=== PATIENT | male | born 1970 | race Caucasian/White ===

== ENCOUNTER 2022-01-05 09:54 | Emergency (ER) | payer OTHER ==
[~2022-01-05] VITALS: Ht 190.5 cm; Wt 149.1 kg
[2022-01-05 11:10] VITALS: BP 172/90
[2022-01-05 11:19] LABS: BASO % 0.5 % (0.0-1.0); LYMPH # 1.6 10^3/uL (1.5-5.0); LYMPH % 28.5 % (24.0-44.0); MEAN CORPUSCULAR HEMOGLOBIN 25.2 pg (27.0-33.0); MEAN CORPUSCULAR HGB CONC 31.8 g/dl (32.0-36.5); MEAN CORPUSCULAR VOLUME 79.3 fl (80.0-96.0); MONO # 0.8 10^3/uL (0.0-0.8); MONO % 14.5 % (2.0-8.0); NEUTROPHILS # 3.2 10^3/uL (1.5-8.5); PLATELET COUNT, AUTOMATED 198 10^3/uL (150-450); RED BLOOD COUNT 5.55 10^6/uL (4.30-6.10); WHITE BLOOD COUNT 5.7 10^3/uL (4.0-10.0)
[2022-01-05 11:48] LABS: APPEARANCE, URINE CLEAR (CLEAR); BACTERIA, URINE AUTO NEGATIVE (NEGATIVE); BILIRUBIN, URINE AUTO NEGATIVE (NEGATIVE); BLOOD, URINE BLOOD NEGATIVE (NEGATIVE); COLOR, URINE YELLOW (YELLOW); GLUCOSE, URINE (UA) AUTO NEGATIVE (NEGATIVE); KETONE, URINE AUTO NEGATIVE (NEGATIVE); LEUKOCYTE ESTERASE, URINE AUTO NEGATIVE (NEGATIVE); MUCUS, URINE SMALL (NEGATIVE); NITRITE, URINE AUTO NEGATIVE (NEGATIVE); PROTEIN, URINE AUTO NEGATIVE (NEGATIVE); RBC, URINE AUTO 2 /HPF (0-3); SPECIFIC GRAVITY URINE AUTO 1.008 (1.002-1.035); SQUAMOUS EPITHELIAL CELL UR AU 0 /HPF (0-6); UROBILINOGEN, URINE AUTO 0.2 mg/dL (0.0-2.0); WBC, URINE AUTO 0 /HPF (0-3)
[2022-01-05 12:00] LABS: ALBUMIN 3.8 GM/DL (3.2-5.2); ALT/SGPT 33 U/L (12-78); BILIRUBIN,TOTAL 0.4 MG/DL (0.2-1.0); BLOOD UREA NITROGEN 10 MG/DL (7-18); CALCIUM LEVEL 8.6 MG/DL (8.5-10.1); CARBON DIOXIDE LEVEL 25 MEQ/L (21-32); CHLORIDE LEVEL 110 MEQ/L (98-107); CREATININE FOR GFR 1.12 MG/DL (0.70-1.30); GLOMERULAR FILTRATION RATE > 60.0 (>56); GLUCOSE, FASTING 106 MG/DL (70-100); POTASSIUM SERUM 3.8 MEQ/L (3.5-5.1); SODIUM LEVEL 140 MEQ/L (136-145); TOTAL PROTEIN 7.6 GM/DL (6.4-8.2)
[2022-01-05] MEDS ORDERED: HYDR-3490 PO (12:56)
[2022-01-05] MEDS ORDERED: LISI10TA22 PO (12:56)
[2022-01-05 13:27] VITALS: BP 146/86
== END 2022-01-05 13:28 | disposition home or self-care (01) ==
LOC: M ED 09:54
DX: I10 Essential (primary) hypertension (principal)

== ENCOUNTER → 2022-06-06 | Outpatient (CLI) | payer OTHER ==
[~2022-06-06] MED LIST: HYDR-3490 PO; LISI10TA22 PO
[2022-06-06 18:02] LABS: ALBUMIN 3.9 GM/DL (3.2-5.2); BLOOD UREA NITROGEN 12 MG/DL (7-18); CALCIUM LEVEL 8.7 MG/DL (8.5-10.1); CARBON DIOXIDE LEVEL 24 MEQ/L (21-32); CHLORIDE LEVEL 105 MEQ/L (98-107); CREATININE FOR GFR 1.12 MG/DL (0.70-1.30); FREE T4 1.09 NG/DL (0.76-1.46); GLOMERULAR FILTRATION RATE > 60.0 (>56); GLUCOSE, FASTING 87 MG/DL (70-100); MAGNESIUM LEVEL 2.3 MG/DL (1.8-2.4); PHOSPHORUS LEVEL 2.9 MG/DL (2.5-4.9); POTASSIUM SERUM 3.6 MEQ/L (3.5-5.1); SODIUM LEVEL 137 MEQ/L (136-145)
[2022-06-06 19:14] LABS: CREATININE, URINE 85.6 MG/DL; CREATININE,RANDOM URINE 85.6 MG/DL; MALB URINE SIEMENS 7.8 MG/L; MAU/CREAT RATIO 9.1 MCG/MG (0.0-30.0)
== END ==
LOC: M LAB 15:13
PROVIDERS: ATTEND Internal Medicine Cardiovascular Disease
DX: I10 Essential (primary) hypertension (principal)

== ENCOUNTER → 2022-06-18 | Outpatient (REF) | payer OTHER | LOC: M LAB REF 08:10 | PROVIDERS: ATTEND Internal Medicine Cardiovascular Disease | DX: I10 Essential (primary) hypertension (principal) ==

== ENCOUNTER → 2022-06-19 | Outpatient (CLI) | payer OTHER | LOC: M RAD 07:27 | PROVIDERS: ATTEND Internal Medicine Cardiovascular Disease | DX: I10 Essential (primary) hypertension (principal); R14.0 Abdominal distension (gaseous) ==

== ENCOUNTER 2023-03-20 07:24 | Day surgery (SDC) | payer OTHER ==
[~2023-03-20] VITALS: Ht 190.5 cm; Wt 134.8 kg
[~2023-03-20 07:24] MED LIST changes: +CARV3.12 PO; +CelecoXIB 400 MG CAP PO ONE; +HYDR12.55 PO; +LISI30TA4 PO
[2023-03-20] MEDS ORDERED: LR 1,000 ML IV SCH (07:30)
[2023-03-20] MEDS ORDERED: LIDOCAINE 2% 100MG/5ML SDV (FOR ANES.) As Ordered ONE (07:58)
[2023-03-20] MEDS ORDERED: ONDANSETRON 4MG 2ML VIAL As Ordered ONE (07:58)
[2023-03-20] MEDS ORDERED: propofoL 200 MG/20 ML VIAL As Ordered ONE (07:58)
[2023-03-20] MEDS ORDERED: fentaNYL 100 MCG/2 ML INJECTION As Ordered ONE (08:04)
[2023-03-20] MEDS ORDERED: MIDAZOLAM INJ 2MG/2ML VIAL As Ordered ONE (08:04)
[2023-03-20] MEDS ORDERED: BOTOX THERAPEUTIC 100 UNIT VIAL As Ordered ONE ×2 (08:10→08:53)
[2023-03-20] MEDS ORDERED: ACETAMINOPHEN 1000MG 100ML IV BAG As Ordered ONE (09:14)
[2023-03-20 10:00] VITALS: BP 131/83; TEMP 97.6; O2SAT 98
== END 2023-03-20 10:15 | disposition home or self-care (01) ==
LOC: M SDC 07:24
PROVIDERS: ATTEND Surgery
DX: K43.9 Ventral hernia without obstruction or gangrene (principal); L98.7 Excessive and redundant skin and subcutaneous tissue; I10 Essential (primary) hypertension; E66.01 Morbid (severe) obesity due to excess calories; Z87.891 Personal history of nicotine dependence; Z79.899 Other long term (current) drug therapy
CPT/HCPCS: 64646; J0131; J0585; J0665; J1100; J2250; J2405; J3010

== ENCOUNTER 2023-04-27 06:13 | Inpatient (IN) | payer OTHER ==
[~2023-04-27] VITALS: Ht 190.5 cm; Wt 133.4 kg
[~2023-04-27 06:13] MED LIST changes: +HEPARIN SOD (PORCINE) 5000UNITS/ML 1ML VIAL/SYRINGE SQ ONE; +POTA-151 PO; +VITMTA PO; +ceFAZolin SOD 2 GM in IV 1 EA IV ONE
[2023-04-27] MEDS ORDERED: GENTAMICIN SULF 80MG/2ML VIAL As Ordered ONE (07:13)
[2023-04-27] MEDS ORDERED: propofoL 200 MG/20 ML VIAL As Ordered ONE (07:15)
[2023-04-27] MEDS ORDERED: ROCURONIUM BROMIDE 50MG/5ML VIAL As Ordered ONE ×3 (07:15→09:58)
[2023-04-27] MEDS ORDERED: LIDOCAINE 2% 100MG/5ML SDV (FOR ANES.) As Ordered ONE (07:15)
[2023-04-27] MEDS ORDERED: MIDAZOLAM INJ 2MG/2ML VIAL As Ordered ONE (07:16)
[2023-04-27] MEDS ORDERED: fentaNYL 250 MCG/5 ML INJECTION As Ordered ONE (07:16)
[2023-04-27] MEDS ORDERED: SUGAMMADEX SODIUM 500 MG/5 ML VIAL (BRIDION) As Ordered ONE (08:32)
[2023-04-27] MEDS ORDERED: METOCLOPRAMIDE INJ 10MG/2ML VIAL As Ordered ONE (08:32)
[2023-04-27] MEDS ORDERED: ONDANSETRON 4MG 2ML VIAL As Ordered ONE (08:32)
[2023-04-27] MEDS ORDERED: ACETAMINOPHEN 1000MG 100ML IV BAG As Ordered ONE (08:32)
[2023-04-27] MEDS ORDERED: KETOROLAC 60MG 2ML VIAL As Ordered ONE (08:32)
[2023-04-27] MEDS ORDERED: ePHEDrine SULFATE 25 MG/5 ML(5MG/ML) SYRINGE As Ordered ONE (08:37)
[2023-04-27] MEDS ORDERED: ceFAZolin 2 GM/D5W 50 ML IV BAG As Ordered ONE (11:07)
[2023-04-27] MEDS ORDERED: HYDROmorphone HCL 2MG/ML 1ML VIAL As Ordered ONE (11:07)
[2023-04-27] MEDS ORDERED: DESFLURANE 240 ML INHALANT As Ordered ONE (11:15)
[2023-04-27] MEDS ORDERED: MORPHINE 4 MG/ML 1ML VIAL IV PRN (12:00)
[2023-04-27] MEDS ORDERED: ONDANSETRON 4MG 2ML VIAL IV PRN ×2 (12:00→12:25)
[2023-04-27] MEDS ORDERED: PROMETHAZINE 25MG/ML 1ML VIAL IV PRN (12:00)
[2023-04-27] MEDS ORDERED: PERCOCET 5MG/325MG TAB PO PRN (12:00)
[2023-04-27] MEDS ORDERED: LR 1,000 ML IV SCH (12:25)
[2023-04-27] MEDS ORDERED: fentaNYL 100 MCG/2 ML INJECTION IV PRN (12:25)
[2023-04-27] MEDS ORDERED: oxyCODONE 5MG TAB PO PRN (12:40)
[2023-04-27] MEDS ORDERED: HYDROMORPHONE HCL 0.5 MG/ 0.5 ML SYRINGE IV PRN (12:40)
[2023-04-27 14:44] VITALS: BP 125/79; TEMP 97.7; O2SAT 95
[2023-04-27] MEDS: LR 1,000 ML IV SCH ×2 (14:44→20:33)
[2023-04-27] MEDS ORDERED: MED REC IN PROGRESS XX SCH (15:15)
[2023-04-27 15:25] VITALS: BP 124/79; TEMP 97.3; O2SAT 96
[2023-04-27] MEDS ORDERED: POTA-151 PO (15:40)
[2023-04-27] MEDS ORDERED: CARV25TA PO (15:40)
[2023-04-27] MEDS ORDERED: HOME MED LIST COMPLETE! XX SCH (15:55)
[2023-04-27 16:28] VITALS: BP 124/79; TEMP 97.2; O2SAT 96
[2023-04-27 17:19] VITALS: BP 140/90; TEMP 97.5; O2SAT 94
[2023-04-27] MEDS: KETOROLAC 30 MG/ML 1ML VIAL IV SCH ×2 (17:21→22:39)
[2023-04-27 18:32] VITALS: BP 142/90; TEMP 97.7; O2SAT 95
[2023-04-27] MEDS: hydroCHLOROthiazide 12.5 MG CAPSULE PO SCH (20:32)
[2023-04-27] MEDS: CARVedilol 3.125 MG TAB PO SCH (20:32)
[2023-04-27 20:56] VITALS: BP 143/89; TEMP 97.7; O2SAT 95
[2023-04-28 01:51] VITALS: BP 124/72; TEMP 97.7; O2SAT 95
[2023-04-28] MEDS: LR 1,000 ML IV SCH (04:05)
[2023-04-28] MEDS: KETOROLAC 30 MG/ML 1ML VIAL IV SCH ×4 (05:47→21:10)
[2023-04-28 06:00] VITALS: BP 133/80; TEMP 97.9; O2SAT 95
[2023-04-28 07:43] LABS: BASO % 0.3 % (0.0-1.0); EOS % 0.1 % (0.0-3.0); HEMATOCRIT 38.1 % (42.0-52.0); HEMOGLOBIN 12.3 g/dl (13.5-17.5); LYMPH # 1.8 10^3/uL (1.5-5.0); LYMPH % 15.2 % (24.0-44.0); MEAN CORPUSCULAR HEMOGLOBIN 26.3 pg (27.0-33.0); MEAN CORPUSCULAR HGB CONC 32.3 g/dl (32.0-36.5); MEAN CORPUSCULAR VOLUME 81.6 fl (80.0-96.0); NEUTROPHILS # 7.1 10^3/uL (1.5-8.5); PLATELET COUNT, AUTOMATED 186 10^3/uL (150-450); RED BLOOD COUNT 4.67 10^6/uL (4.30-6.10); WHITE BLOOD COUNT 11.7 10^3/uL (4.0-10.0)
[2023-04-28 07:52] LABS: BLOOD UREA NITROGEN 16 MG/DL (9-23); CALCIUM LEVEL 8.5 MG/DL (8.5-10.1); CARBON DIOXIDE LEVEL 26 MMOL/L (20-31); CHLORIDE LEVEL 107 MMOL/L (98-107); GLOMERULAR FILTRATION RATE > 60.0 (>56); GLUCOSE, FASTING 95 MG/DL (60-100); POTASSIUM SERUM 3.8 MMOL/L (3.5-5.1); SODIUM LEVEL 141 MMOL/L (136-145)
[2023-04-28 08:06] LABS: MONO # 2.7 10^3/uL (0.0-0.8)
[2023-04-28] MEDS: CARVedilol 3.125 MG TAB PO SCH ×2 (09:32→21:09)
[2023-04-28] MEDS: PERCOCET 5MG/325MG TAB PO PRN (09:32)
[2023-04-28] MEDS: hydroCHLOROthiazide 12.5 MG CAPSULE PO SCH ×2 (09:32→21:09)
[2023-04-28] MEDS: PANTOPRAZOLE 40MG TAB (PROTONIX) PO SCH (09:33)
[2023-04-28] MEDS: SENOKOT S TAB PO SCH (09:33)
[2023-04-28] MEDS: ENOXAPARIN 40MG/0.4ML SYRINGE (J1650 PER 10MG) SC SCH (09:34)
[2023-04-28 10:00] VITALS: BP 116/67; TEMP 98.1; O2SAT 95
[2023-04-28 22:00] VITALS: BP 129/78; TEMP 98.1; O2SAT 94
[2023-04-29] MEDS: PERCOCET 5MG/325MG TAB PO PRN ×2 (04:38→20:28)
[2023-04-29] MEDS: KETOROLAC 30 MG/ML 1ML VIAL IV SCH ×3 (05:42→18:00)
[2023-04-29 06:00] VITALS: BP 122/76; TEMP 98.2; O2SAT 95
[2023-04-29 07:40] LABS: BLOOD UREA NITROGEN 15 MG/DL (9-23); CALCIUM LEVEL 8.2 MG/DL (8.5-10.1); CARBON DIOXIDE LEVEL 25 MMOL/L (20-31); CHLORIDE LEVEL 107 MMOL/L (98-107); CREATININE FOR GFR 1.15 MG/DL (0.70-1.30); GLOMERULAR FILTRATION RATE > 60.0 (>56); GLUCOSE, FASTING 91 MG/DL (60-100); POTASSIUM SERUM 3.7 MMOL/L (3.5-5.1); SODIUM LEVEL 141 MMOL/L (136-145)
[2023-04-29] MEDS: ENOXAPARIN 40MG/0.4ML SYRINGE (J1650 PER 10MG) SC SCH (09:07)
[2023-04-29] MEDS: CARVedilol 3.125 MG TAB PO SCH ×2 (09:07→20:28)
[2023-04-29] MEDS: PANTOPRAZOLE 40MG TAB (PROTONIX) PO SCH (09:08)
[2023-04-29] MEDS: SENOKOT S TAB PO SCH (09:08)
[2023-04-29] MEDS: hydroCHLOROthiazide 12.5 MG CAPSULE PO SCH ×2 (09:09→20:27)
[2023-04-29 12:24] LABS: HEMATOCRIT 34.5 % (42.0-52.0); MEAN CORPUSCULAR HEMOGLOBIN 26.2 pg (27.0-33.0); MEAN CORPUSCULAR HGB CONC 31.9 g/dl (32.0-36.5); MEAN CORPUSCULAR VOLUME 82.1 fl (80.0-96.0); PLATELET COUNT, AUTOMATED 179 10^3/uL (150-450); WHITE BLOOD COUNT 9.7 10^3/uL (4.0-10.0)
[2023-04-29] MEDS ORDERED: KETOCONAZOLE 2% CREAM TOP SCH (13:00)
[2023-04-29 14:00] VITALS: BP 134/91; TEMP 98.2; O2SAT 93
[2023-04-29 20:44] VITALS: BP 140/97; TEMP 97.9; O2SAT 95
[2023-04-30] MEDS: KETOROLAC 30 MG/ML 1ML VIAL IV SCH ×3 (00:18→12:00)
[2023-04-30 05:50] LABS: HEMOGLOBIN 10.4 g/dl (13.5-17.5); MEAN CORPUSCULAR HEMOGLOBIN 26.3 pg (27.0-33.0); MEAN CORPUSCULAR HGB CONC 32.5 g/dl (32.0-36.5); MEAN CORPUSCULAR VOLUME 80.8 fl (80.0-96.0); PLATELET COUNT, AUTOMATED 159 10^3/uL (150-450); RED BLOOD COUNT 3.96 10^6/uL (4.30-6.10); WHITE BLOOD COUNT 6.1 10^3/uL (4.0-10.0)
[2023-04-30 06:00] VITALS: BP 137/86; TEMP 98.1; O2SAT 97
[2023-04-30 06:25] LABS: BLOOD UREA NITROGEN 21 MG/DL (9-23); CARBON DIOXIDE LEVEL 26 MMOL/L (20-31); CHLORIDE LEVEL 105 MMOL/L (98-107); CREATININE FOR GFR 1.28 MG/DL (0.70-1.30); GLOMERULAR FILTRATION RATE > 60.0 (>56); GLUCOSE, FASTING 92 MG/DL (60-100); POTASSIUM SERUM 3.6 MMOL/L (3.5-5.1); SODIUM LEVEL 140 MMOL/L (136-145)
[2023-04-30] MEDS: SENOKOT S TAB PO SCH (09:00)
[2023-04-30] MEDS: hydroCHLOROthiazide 12.5 MG CAPSULE PO SCH (09:05)
[2023-04-30] MEDS: PANTOPRAZOLE 40MG TAB (PROTONIX) PO SCH (09:05)
[2023-04-30 09:06] VITALS: BP 137/86
[2023-04-30] MEDS: ENOXAPARIN 40MG/0.4ML SYRINGE (J1650 PER 10MG) SC SCH (09:06)
[2023-04-30] MEDS: CARVedilol 3.125 MG TAB PO SCH (09:06)
[2023-04-30] MEDS ORDERED: SENN-52 PO (11:35)
[2023-04-30] MEDS ORDERED: PERCOCET PO (11:35)
[2023-04-30] MEDS ORDERED: KETO2CR TOP (11:37)
== END 2023-04-30 14:55 | disposition home or self-care (01) | DRG 337 ==
LOC: M OR 06:13 → M MS5PR 14:25
PROVIDERS: ADMIT Surgery; ATTEND Surgery
PROC: 0DNU0ZZ Release Omentum, Open Approach (ICD-10-PCS; principal; 2023-04-30)
PROC: 0DB80ZX Excision of Small Intestine, Open Approach, Diagnostic (ICD-10-PCS; 2023-04-30)
PROC: 0WQF0ZZ Repair Abdominal Wall, Open Approach (ICD-10-PCS; 2023-04-30)
PROC: 0HB7XZZ Excision of Abdomen Skin, External Approach (ICD-10-PCS; 2023-04-30)
DX: K43.9 Ventral hernia without obstruction or gangrene (principal); E66.01 Morbid (severe) obesity due to excess calories; Z68.36 Body mass index [BMI] 36.0-36.9, adult; L98.7 Excessive and redundant skin and subcutaneous tissue; I10 Essential (primary) hypertension; Z79.899 Other long term (current) drug therapy

== ENCOUNTER → 2024-03-18 | Outpatient (CLI) | payer OTHER ==
[~2024-03-18] MED LIST changes: +CARV25TA PO; -CelecoXIB 400 MG CAP PO ONE; -HEPARIN SOD (PORCINE) 5000UNITS/ML 1ML VIAL/SYRINGE SQ ONE; +KETO2CR TOP; +PERCOCET PO; +SENN-52 PO; -ceFAZolin SOD 2 GM in IV 1 EA IV ONE
== END ==
LOC: M SLEEP 20:00
PROVIDERS: ATTEND Nurse Practitioner Family
DX: G47.33 Obstructive sleep apnea (adult) (pediatric) (principal)

== ENCOUNTER 2024-05-02 07:27 | Day surgery (SDC) | payer OTHER ==
[~2024-05-02] VITALS: Ht 190.5 cm; Wt 139.3 kg
[~2024-05-02 07:27] MED LIST changes: +NS 1,000 ML IV ONE; +THERTAB52 PO
[2024-05-02] MEDS ORDERED: LIDOCAINE 2% 100MG/5ML SDV (FOR ANES.) As Ordered ONE (08:41)
[2024-05-02] MEDS ORDERED: propofoL 200 MG/20 ML VIAL As Ordered ONE (08:41)
[2024-05-02 09:17] VITALS: TEMP 97.6
[2024-05-02 09:32] VITALS: BP 124/65; O2SAT 97
== END 2024-05-02 09:37 | disposition home or self-care (01) ==
LOC: M OPP 07:27
PROVIDERS: ATTEND Surgery
DX: Z12.11 Encounter for screening for malignant neoplasm of colon (principal); K63.5 Polyp of colon; K57.30 Diverticulosis of large intestine without perforation or abscess without bleeding; I10 Essential (primary) hypertension; Z79.899 Other long term (current) drug therapy